=== PATIENT | female | born 1985 ===

== ENCOUNTER 2024-04-12 06:29 | Day surgery (SDC) | payer OTHER ==
[~2024-04-12] VITALS: Ht 160 cm; Wt 60.1 kg
[~2024-04-12 06:29] MED LIST: LR 1,000 ML IV SCH; Ondansetron 4 MG/2 ML VIAL IV PRN
[2024-04-12 06:48] VITALS: BP 125/81; PULSE 90; TEMP 97.7
--- NOTE | 2024-04-12 07:09 | NUR ---
The patient ambulated back to [place] [facility] independently using a steady gait and appeared to tolerate the activity well. Vital signs obtained. Consent signed. 20G IV started in right hand with one stick, LR infusing without difficulty. Assessment completed. Home medications reconcilled. Warm blankets provided. at bedside. Denies any further needs.
[2024-04-12] MEDS ORDERED: Lidocaine PF 2% (20 MG/ML) 5 ML VIAL ONE (08:16)
[2024-04-12 09:15] VITALS: BP 104/82; PULSE 67; TEMP 97.3
--- NOTE | 2024-04-12 10:14 | NUR ---
0915- PT RETURNS FROM ENDO PROCEDURE VIA CART AND RN ASSIST TO [facility]. PT AMBULATES FROM CART TO RECLINER WITH ASSIST. MONITORS ON AND ALARMS SET. CALL LIGHT WITHIN REACH. REPORT RECEIVED FROM BUNNY BROWN. PT ALERT AND ORIENTED. PT REQUESTS FOOD AND DRINK. PT DENIES ANY PAIN OR NAUSEA. 0930- PT TAKING FOOD AND DRINK WELL. NO COMPLICATIONS NOTED. 0950- DISCHARGE INSTRUCTIONS GIVEN TO PT. ALL QUESTIONS ANSWERED. 1000- PT TRANSFERRED OUT OF THE HOSPITAL VIA WHEELCHAIR TO PRIVATE VEHICLE DRIVEN BY .
== END 2024-04-12 10:00 | disposition home or self-care (01) ==
LOC: SDCO 06:29
DX: D12.3 Benign neoplasm of transverse colon (principal); D50.9 Iron deficiency anemia, unspecified; K64.0 First degree hemorrhoids; K21.00 Gastro-esophageal reflux disease with esophagitis, without bleeding; K57.10 Diverticulosis of small intestine without perforation or abscess without bleeding; Z83.79 Family history of other diseases of the digestive system
CPT/HCPCS: J2704; J7120